=== PATIENT | female | born 1995 | race Caucasian/White ===

== ENCOUNTER → 2020-04-07 | Outpatient (CLI) | payer BC ==
[~2020-04-07] MED LIST: IOPAMIDOL 370 MG/ML 200 ML INFUS..BTL INJ ONE; SODIUM CHLORIDE 0.9% 50ML 50 ML ONE; TRINESSA1 EACH PO; ZOLOFT PO
--- NOTE | 2020-04-07 16:11 | Diagnostic Imaging Report ---
EXAM: CT Chest WITH intravenous contrast 04/07/2020 3:00 PM INDICATION: Mediastinal mass COMPARISON: None TECHNIQUE: Chest was scanned utilizing a multidetector helical scanner from the lung apex through the level of the adrenal glands after administration of IV contrast. Coronal and sagittal reformations were obtained. Routine protocol was performed. IV CONTRAST: 100mL Isovue 370 RADIATION DOSE: Total DLP: 386 mGy*cm. Dose modulation, iterative reconstruction, and/or weight based adjustment of the mA/kV was utilized to reduce the radiation dose to as low as reasonably achievable. COMPLICATIONS: None FINDINGS: LINES/ TUBES: None. LUNGS AND AIRWAYS: The central airways are patent. No focal consolidation or pulmonary edema. No suspicious pulmonary nodules. PLEURA: The pleural spaces are clear. HEART AND MEDIASTINUM: The thyroid gland is normal. No supraclavicular, axillary, mediastinal, or hilar lymphadenopathy. Minimal anterior mediastinal prevascular space soft tissue density may represent small amount of residual thymic tissue. No discrete mass. The heart is not enlarged. No pericardial effusion. No central pulmonary embolism. UPPER ABDOMEN: No acute findings in the upper abdomen. BONES: No acute osseous injury. No suspicious lytic or blastic lesions. SOFT TISSUES: Unremarkable. IMPRESSION: Minimal anterior mediastinal prevascular space soft tissue may represent small amount of residual thymic tissue. No discrete mass. No focal pneumonia or pulmonary edema. Signed by: Mateo Chavez MD on 04/07/2020 4:07 PM
== END ==
LOC: CT 13:32
PROVIDERS: ATTEND Thoracic Surgery (Cardiothoracic Vascular Surgery)
DX: R22.2 Localized swelling, mass and lump, trunk (principal)
CPT/HCPCS: 71260; 81025; Q9967